=== PATIENT | male | born 1955 | race Caucasian/White ===

== ENCOUNTER 2017-01-24 11:01 | Outpatient (CLI) | payer MEDICARE ==
--- NOTE | 2017-01-24 13:54 | RAD ---
CHEST TWO VIEWS: HISTORY: Preoperative exam. COMPARISON: 03/15/2016 and 05/17/2016 FINDINGS: Stable left-sided single-lead defibrillator. Sternotomy wires are noted. The cardiac silhouette is within normal limits. Pulmonary vessels are within normal limits. Costophrenic angles are clear. C hronic changes in the lung parenchyma. Hyperinflation without consolidation or mass. No pneumothora x or osseous abnormalities. IMPRESSION: No acute cardiopulmonary process. POS: [facility]
[2017-01-24 14:47] LABS: Bilirubin Negative (Negative); Blood, Urine Trace (Negative); Glucose, Urine (Dipstick) 250 mg/dL (Negative); Ketone, Urine Negative (Negative); Nitrite Negative (Negative); Protein, Urine (Dipstick) 100 mg/dL (Neg-Trace); Urobilinogen 0.2 mg/dL (0.2-1.0)
[2017-01-24 14:51] LABS: Bacteria/HPF None Seen HPF (None Seen); Hyaline Casts/LPF 0-3 HYALINE CAST LPF (0-3 Hyaline); RBC/HPF 0-3 HPF (0-3); Squamous Epithelial None Seen HPF (0-3); WBC/HPF 0-3 HPF (0-3)
[2017-01-24 14:53] LABS: #Basophils 0.1 thou/uL (0.0-0.2); #Eosinphils 0.5 thou/uL (0.0-0.7); #Monocytes 0.6 thou/uL (0.11-0.59); #Neutrophils 6.5 thou/uL (1.40-6.50); %Basophils 0.9 % (0.0-1.0); %Eosinophils 4.8 % (0.0-10.0); %Lymphocytes 28.2 % (21.0-51.0); %Monocytes 5.8 % (0.0-10.0); Mean Platelet Volume 8.9 fL (7.4-10.4); Red Blood Cell (RBC) Count 4.65 mill/uL (4.70-6.10); White Blood Cell (WBC) Count 10.8 thou/uL (4.8-10.8)
[2017-01-24 14:58] LABS: Prothrombin Time 13.1 SEC (12.0-14.7)
[2017-01-24 14:59] LABS: PTT 36.1 SEC (22.9-36.1)
[2017-01-24 15:12] LABS: Anion Gap 11 mmol/L (10-20); BUN (Urea Nitrogen) 51 mg/dL (8.4-25.7); Calc. Creatinine Clearance 0 mL/min (70-130); Calcium 10.4 mg/dL (7.8-10.44); Carbon Dioxide 29 mmol/L (22-29); Chloride 99 mmol/L (98-107); Estimated GFR-MDRD 39
== END 2017-01-24 11:02 | disposition home or self-care (01) ==
LOC: LABBT 11:01
PROVIDERS: ATTEND Orthopaedic Surgery
DX: Z01.818 Encounter for other preprocedural examination (principal); M17.11 Unilateral primary osteoarthritis, right knee
CPT/HCPCS: 71020; 80048; 81001; 85025; 85610; 85730; 86850; 86900; 86901; 87081; 93005; 93010

== ENCOUNTER 2017-01-24 15:00 | Inpatient (IN) | payer MEDICARE ==
[2017-01-24 11:34] VITALS: BMI 31.4
[2017-01-31] MEDS ORDERED: Tranexamic Acid 1,000 MG/100 ML BAG ONE ×2 (07:21→10:46)
[2017-01-31] MEDS ORDERED: CEFAZOLIN/Water 2 GM/20 ML SYRINGE ONE (07:21)
[2017-01-31] MEDS ORDERED: Ropivacaine 0.2% HCl/PF 20 ML ONE (07:24)
[2017-01-31] MEDS ORDERED: Fentanyl 100 MCG/2 ML VIAL ONE ×4 (07:24→11:47)
[2017-01-31] MEDS ORDERED: Midazolam HCl 2 mg/2 ml Vial ONE ×2 (07:24→07:49)
[2017-01-31] MEDS ORDERED: Ropivacaine HCl/PF 250 ML in Premix Bag 1 BAG NERVE BLCK SCH (07:52)
[2017-01-31] MEDS ORDERED: traMADol HCl 50 MG TAB PO PRN ×4 (07:52→11:36)
[2017-01-31] MEDS ORDERED: Promethazine HCl 25 MG/ML VIAL IM PRN ×4 (07:52→12:34)
[2017-01-31] MEDS ORDERED: Zolpidem Tartrate 5 MG TAB PO PRN ×3 (07:52→12:34)
[2017-01-31] MEDS ORDERED: HYDROcodone/Acetaminophen 10/325 mg Tablet PO PRN ×4 (07:52→11:35)
[2017-01-31] MEDS ORDERED: Vancomycin HCl 1.5 GM in Sodium Chloride 0.9% 250 ML 300 ML IVPB SCH (08:30)
[2017-01-31] MEDS ORDERED: Fentanyl 100 MCG/2 ML VIAL SLOW IVP PRN ×3 (08:46→11:36)
[2017-01-31] MEDS ORDERED: diphenhydrAMINE 25 MG CAP PO PRN ×2 (08:46→12:34)
[2017-01-31] MEDS ORDERED: Ondansetron HCl/PF 4 MG/2 ML Vial IVP PRN ×2 (08:46→09:33)
[2017-01-31] MEDS ORDERED: Acetaminophen 325 MG TAB PO PRN (08:46)
[2017-01-31] MEDS ORDERED: Pregabalin 50 MG CAP PO SCH (09:00)
[2017-01-31] MEDS ORDERED: LEVEMIR SC SCH (09:00)
[2017-01-31] MEDS ORDERED: Promethazine HCl 25 MG/ML VIAL SLOW IVP PRN (09:33)
[2017-01-31] MEDS ORDERED: INSULIN DETEMIR SC SCH (10:30)
[2017-01-31] MEDS ORDERED: PRE FILLED SC SCH (10:30)
--- NOTE | 2017-01-31 10:54 | OP ---
PREOPERATIVE DIAGNOSIS: Degenerative joint disease, right knee. POSTOPERATIVE DIAGNOSIS: Degenerative joint disease, right knee. SURGEON: Gordo Garrido M.D. CONE OPERATOR: Donovan Alvarenga PA-C. BLOOD LOSS: Minimal. TOURNIQUET TIME: 61 minutes. SPECIMEN: None. DRAINS: None. COMPLICATIONS: None. IMPLANTS USED: Yousif Triathlon 6 femur, 6 tibia, 9 mm CSX3 polyethylene, and A38 patella. PROCEDURE IN DETAIL: After informed consent was obtained in the preoperative holding area. The kishore ent was taken to the operative suite where general anesthesia was induced. Once adequate level of ge neral anesthesia was obtained, the patient was positioned and a well-padded tourniquet was placed sandra und the right proximal thigh. The right lower extremity was then prepped and draped in the usual ruddy rile fashion. Prior to exsanguination, a time out was called and all members of the surgical team ag ya upon site, surgeon, and patient. The extremity was then exsanguinated and the tourniquet was ra ised. A midline longitudinal incision was then made directly over the patella extending two fingerbr eadths above the superior pole of the patella and two fingerbreadths inferior to the inferior patella r pole of the patella. Deeper subcutaneous layers were dissected sharply and local bleeding was cont rolled with Bovie electrocautery. A quad tendon longitudinal split was then made sharply and a media n parapatellar arthrotomy was carried out both sharp and with Bovie electrocautery, carried down to o ne fingerbreadth medial to the tibial tubercle. The knee was then placed into flexion and the patell a was everted nicely, and a copious fat pad ectomy was performed allowing for greater exposure of the tibia. The computer-assisted distal femoral fiducial was then placed and pinned firmly, and the dis sally femoral cutting guide was pinned firmly into place. The oscillating saw was then used to remove the appropriate amount of bone. The 4-in-1 cutting block was then placed on the distal femur and the oscillating saw was used to remove the appropriate amount of bone off of the anterior, posterior, an d chamfer cuts. After completion of bone cuts, the anterior cruciate ligament was resected sharply a nd the posterior cruciate ligament retractor was placed and the tibia was subluxed for better exposur e. Partial meniscectomies were carried out, and the tibial computer-assisted fiducial was pinned, an d the cutting guide was placed. Oscillating saw was then used to remove the bone with Hohmann retrac tors used to take care and protect the collateral ligaments. After the tibial resection was performe d, a laminar acoustic sensor operator was placed in between the freshened bone cuts. The knee placed at 90 degrees a nd further bilateral meniscectomies were carried out, and the curved osteotome and curettage was used to remove any excess bone spurs in the posterior compartment. Exparel was then injected into the po sterior capsule, michelle-articular synovia, pre-patella synovia, and musculature surrounding the capsule . The trial femoral component, tibial baseplate were placed with the appropriate polyethylene trial insert with an appropriate polyethylene spacer and patellar button. The knee was taken through full range of motion with flexion and extension from 0-90 degrees and patellar broach squarely in the tro chlea without any squinting or subluxation noted. The knee was also stable to varus and valgus stres sing at 0, 15, 45, and 90 degrees of flexion. The drawer was negative. All trial components were the n removed and the keel punch was used to provide the appropriate defect in the tibia with a mallet. The freshened bone cuts were copiously irrigated with pulsatile lavage of about 1-1/2 liters to remov e all excess debris. The freshened bone cuts were then dried and with suction and lap sponge. The k nee was placed in flexion and retractors were placed to provide access to all bone cuts. Tobramycin impregnated methyl methacrylate cement was then placed on the freshened bone cuts and implants which were malleted firmly into place. Curettage and Veyo elevators were used to remove any excess bone c ement. The knee was placed into full extension and the patellar button was placed under compression, and the cement was allowed to cure. Once completed, the components were again taken through full ra nge of motion and copious irrigation of the knee was carried out with another liter of normal saline. All components were inspected fully with full range of motion and varus and valgus stressing. There was no laxity noted and full extension was observed clinically. Primary closure was accomplished wi th #2 interrupted Vicryl stitch of the arthrotomy defect. This was oversewn with a #2 running Quill barbed stitch. The gravitational platelet system was then injected into the arthrotomy prior to clos ure. The subcutaneous layer was then closed with a running 0 barbed Monocryl stitch and skin closure accomplished with a running subcuticular 3-0 Monocryl barbed Quill stitch and augmented with cement on the skin. Tourniquet was lowered. Good spontaneous return of distal pulses was noted clinically and a sterile dressing was applied to the incision. The procedure was terminated without any complic ations. The patient was awakened in the operative suite and the tourniquet was removed, and the kishore ent was taken to the recovery room in stable condition.
[2017-01-31] MEDS ORDERED: Ropivacaine 0.5% HCl/PF (150 MG/30 ML VIAL) ONE (11:02)
[2017-01-31] MEDS ORDERED: Acetaminophen 1,000 MG in Premix Bag 1 BAG IVPB PRN (11:34)
[2017-01-31] MEDS ORDERED: Lidocaine 1% PF 5 ML VIAL ONE (11:50)
[2017-01-31] MEDS ORDERED: Propofol 200 MG/20 ML VIAL ONE (11:50)
[2017-01-31] MEDS ORDERED: PHENYLEPHRINE-NS 100 MCG/ML 10 ML SYRINGE ONE (11:50)
[2017-01-31] MEDS ORDERED: Ondansetron HCl/PF 4 MG/2 ML Vial ONE (11:50)
[2017-01-31] MEDS ORDERED: Morphine 4 MG/ML VIAL ONE (12:10)
[2017-01-31] MEDS ORDERED: Morphine 4 MG/ML VIAL SLOW IVP SCH (12:15)
[2017-01-31] MEDS ORDERED: Morphine CADD 1 MG/ML CADD IV PRN (12:34)
[2017-01-31] MEDS ORDERED: diphenhydrAMINE 50 MG/ML VIAL IM/IV PRN (12:34)
[2017-01-31] MEDS ORDERED: Morphine CADD 100 ML ONE (12:34)
[2017-01-31] MEDS ORDERED: Naloxone HCl 0.4 mg/ml Vial IV PRN (12:34)
--- NOTE | 2017-01-31 13:01 | RAD ---
RADIOGRAPH RIGHT KNEE TWO VIEWS: Date: 01-31-17 History: 61-year-old male with right knee pain, status post right knee surgery. Comparison: None. FINDINGS: Metallic prostheses cover the articular surfaces of the distal femur and tibial plateau. Resurfacing changes of posterior aspect of the patella. Extensive subcutaneous emphysema anteriorly, and within t he joint space. Bubbly mixed osteolytic and mildly sclerotic, partially exophytic lesion protruding f rom the posterior aspect of the distal femoral metaphysis, incompletely imaged. IMPRESSION: 1. Immediately status post total right knee replacement arthroplasty. 2. Posterior distal femoral lesion, incompletely imaged. POS: [facility]
[2017-01-31] MEDS: Furosemide 20 MG TAB PO SCH (14:54)
[2017-01-31] MEDS: Aspirin 325 MG TAB PO SCH ×2 (14:54→21:30)
[2017-01-31] MEDS: Metoprolol Tartrate 25 MG TAB PO SCH ×2 (14:56→21:31)
[2017-01-31] MEDS: Sodium Chloride 0.9% 1,000 ML IV SCH ×2 (14:56→20:00)
[2017-01-31] MEDS: Varenicline Tartrate 0.5 MG TAB PO SCH ×2 (14:57→21:31)
[2017-01-31] MEDS: Ketorolac Tromethamine 30 MG/ML VIAL IVP SCH ×2 (15:02→21:32)
[2017-01-31] MEDS: CEFAZOLIN/Water 2 GM/20 ML SYRINGE SLOW IVP SCH (15:03)
--- NOTE | 2017-01-31 15:37 | PDOC.PN ---
- Subjective Encounter Start Date: 01/31/17 Encounter Start Time: 14:00 Patient seen and examined in PACU. No new complaints. Some discomfort at the surgical site - Objective Vital Signs & Weight: Vital Signs (12 hours) Temp Pulse Resp BP Pulse Ox 01/31/17 14:00 97.4 F L 58 L 18 126/71 97 Weight Weight 238 lb Result Diagrams: 02/01/17 04:27 Additional Labs: Accuchecks 01/31/17 01/31/17 15:14 09:05 POC Glucose 165 H 216 H EKG Reviewed by me: Yes (SR) Phys Exam - Physical Examination Constitutional: NAD Respiratory: no wheezing, no rhonchi Cardiovascular: RRR, no rub Gastrointestinal: soft, non-tender, positive bowel sounds Musculoskeletal: no edema Neurological: moves all 4 limbs Dx/Plan - Plan DVT proph w/SCDs IMPRESSION: 1. HTN 2. DM2 3. CAD s/p stent/CABG 4. s/p AICD for arrhythmias 5. CKD 3 PLAN: * Change Levemir to BID * Add Moderate sliding scale * Cont Metoprolol with Lisinopril * Diabetic education per protocol * DVT prop per protocol * Full code * on ASA Review of Systems - Review of Systems Respiratory: negative: Cough, Dry, Shortness of Breath, Hemoptysis, SOB with Excertion, Pleuritic Pain, Sputum, Wheezing Cardiovascular: negative: chest pain, palpitations, orthopnea, paroxysmal nocturnal dyspnea, edema, light headedness - Medications/Allergies Allergies/Adverse Reactions: Allergies Allergy/AdvReac Type Severity Reaction Status Date / Time orange flavor Allergy Verified 01/24/17 11:34 orange juice [[place] Juice] Allergy Verified 01/24/17 11:34 duloxetine HCl AdvReac Severe Verified 01/24/17 11:34 [From Cymbalta] Medications: Current Medications Acetaminophen (Tylenol) 650 mg PO Q4H PRN PRN Reason: IVAN/ T > 101F; Mild Pain (1-3) Aspirin (Aspirin) 325 mg PO BID [facility] Last Admin: 01/31/17 14:54 Dose: Not Given Atorvastatin Calcium (Lipitor) 10 mg PO HS [facility] Cefazolin Sodium (Ancef) 2 gm SLOW IVP 0800,1600,2359 [facility] Stop: 02/01/17 00:00 Last Admin: 01/31/17 15:03 Dose: 2 gm Diphenhydramine HCl (Benadryl) 25 mg PO Q6H PRN PRN Reason: Itching Diphenhydramine HCl (Benadryl) 25 mg IM/IV Q3H PRN PRN Reason: Itching Diphenhydramine HCl (Benadryl) 25 mg PO Q3H PRN PRN Reason: Itching Ferrous Gluconate (Fergon) 324 mg PO BID[facility] Furosemide (Lasix) 20 mg PO QAM [facility] Last Admin: 01/31/17 14:54 Dose: Not Given Ropivacaine 250 ml/ Device 250 mls @ 10 mls/hr NERVE BLCK INF [facility] Sodium Chloride (Normal Saline 0.9%) 1,000 mls @ 100 mls/hr IV .Q10H [facility] Last Admin: 01/31/17 14:56 Dose: Not Given Insulin Detemir 46 units/ (Miscellaneous Medication) 0.46 mls @ 0 mls/hr SC QAM [facility] Acetaminophen 1,000 mg/ Device 100 mls @ 400 mls/hr IVPB Q6H PRN PRN Reason: Pain Stop: 02/01/17 11:35 Iron/Minerals/Multivitamins (Theragran M) 1 tab PO DAILY [facility] Ketorolac Tromethamine (Toradol) 30 mg IVP Q8HR [facility] Stop: 02/02/17 14:01 Last Admin: 01/31/17 15:02 Dose: 30 mg Lisinopril (Zestril) 5 mg PO HS [facility] Metoprolol Tartrate (Lopressor) 25 mg PO BID [facility] Last Admin: 01/31/17 14:56 Dose: Not Given Morphine Sulfate (Morphine Cadd) 0 mg IV INF PRN PRN Reason: Pain Naloxone HCl (Narcan) 0.2 mg IV Q5MIN PRN PRN Reason: RR <8 or pt obtun/unarousable Ondansetron HCl (Zofran) 4 mg IVP Q6H PRN PRN Reason: Nausea/Vomiting Ondansetron HCl (Zofran) 4 mg IVP Q6H PRN PRN Reason: Nausea/Vomiting Promethazine HCl (Phenergan) 12.5 mg IM Q4H PRN PRN Reason: Nausea/Vomiting Promethazine HCl (Phenergan) 12.5 mg IM Q4H PRN PRN Reason: Nausea/Vomiting Senna/Docusate Sodium (Senokot S) 2 tab PO BID [facility] Sodium Chloride (Flush - Normal Saline) 10 ml IVF PRN PRN PRN Reason: Saline Flush Varenicline (Chantix) 1 mg PO BID [facility] Last Admin: 01/31/17 14:57 Dose: Not Given Zolpidem Tartrate (Ambien) 5 mg PO HSPRN PRN PRN Reason: Insomnia
[2017-01-31] MEDS ORDERED: Insulin Regular 300 UNITS/3 ML VIAL SC PRN (15:38)
[2017-01-31] MEDS ORDERED: Dextrose 5% in Water 1,000 ML IV PRN (15:38)
[2017-01-31] MEDS ORDERED: Dextrose 50% Abboject 50 ML SYRINGE SLOW IVP PRN (15:38)
[2017-01-31] MEDS: Ondansetron HCl/PF 4 MG/2 ML Vial IVP PRN (17:16)
[2017-01-31] MEDS ORDERED: Lisinopril 5 MG TAB PO SCH (21:00)
[2017-01-31] MEDS ORDERED: Insulin Detemir 100 UNITS/ML 15 UNITS in Admixture Fee 1 EACH SC SCH (21:00)
[2017-01-31] MEDS: Atorvastatin Calcium 10 MG TAB PO SCH (21:30)
[2017-02-01] MEDS: CEFAZOLIN/Water 2 GM/20 ML SYRINGE SLOW IVP SCH (00:18)
[2017-02-01] MEDS: Sodium Chloride 0.9% 1,000 ML IV SCH ×2 (04:10→09:37)
[2017-02-01 05:16] LABS: Hematocrit 39.9 % (42.0-52.0); Red Blood Cell (RBC) Count 4.19 mill/uL (4.70-6.10); White Blood Cell (WBC) Count 9.3 thou/uL (4.8-10.8)
[2017-02-01] MEDS: Ketorolac Tromethamine 30 MG/ML VIAL IVP SCH ×3 (05:52→21:21)
[2017-02-01] MEDS: Ondansetron HCl/PF 4 MG/2 ML Vial IVP PRN (06:19)
[2017-02-01] MEDS ORDERED: Promethazine HCl 25 MG/ML VIAL IM/IV PRN (07:23)
[2017-02-01 08:47] LABS: Anion Gap 15 mmol/L (10-20); BUN (Urea Nitrogen) 43 mg/dL (8.4-25.7); Calc. Creatinine Clearance 72 mL/min (70-130); Calcium 8.9 mg/dL (7.8-10.44); Carbon Dioxide 20 mmol/L (22-29); Chloride 107 mmol/L (98-107); Estimated GFR-MDRD 42; Magnesium 1.7 mg/dL (1.6-2.6); Phosphorus 3.2 mg/dL (2.3-4.7)
[2017-02-01] MEDS: Multivitamin W/ Minerals 1 TAB PO SCH (08:48)
[2017-02-01] MEDS: Aspirin 325 MG TAB PO SCH ×2 (08:49→21:20)
[2017-02-01] MEDS: Varenicline Tartrate 0.5 MG TAB PO SCH ×2 (08:49→21:21)
[2017-02-01] MEDS: Senokot S 8.6-50 MG TAB PO SCH ×2 (08:49→21:20)
[2017-02-01] MEDS: Furosemide 20 MG TAB PO SCH (08:49)
[2017-02-01] MEDS: Metoprolol Tartrate 25 MG TAB PO SCH ×2 (08:54→21:20)
[2017-02-01] MEDS ORDERED: INSULIN DETEMIR SC SCH (09:00)
[2017-02-01] MEDS ORDERED: PRE FILLED SC SCH (09:00)
[2017-02-01] MEDS ORDERED: FLU VACC QS2017-18 36 mo. & older 0.5 ML SYRINGE IM ONE (09:00)
[2017-02-01] MEDS: Insulin Detemir 100 UNITS/ML 20 UNITS in Pre-Filled Syringe 1 EACH SC SCH ×2 (09:39→21:27)
[2017-02-01] MEDS: Ferrous Gluconate 324 MG TAB PO SCH ×2 (09:41→18:38)
[2017-02-01] MEDS ORDERED: Fentanyl 5000 MCG/250 ML CADD IV PRN (12:44)
[2017-02-01] MEDS ORDERED: FENTANYL EPIDURAL PRN (13:37)
[2017-02-01] MEDS ORDERED: ADMIXTURE FEE EPIDURAL PRN (13:37)
[2017-02-01] MEDS ORDERED: SODIUM CHLORIDE EPIDURAL PRN (13:37)
[2017-02-01] MEDS ORDERED: FENTANYL IV PRN ×2 (13:45→14:03)
[2017-02-01] MEDS ORDERED: ADMIXTURE FEE IV PRN ×2 (13:45→14:03)
[2017-02-01] MEDS ORDERED: SODIUM CHLORIDE IV PRN ×2 (13:45→14:03)
[2017-02-01] MEDS ORDERED: Fentanyl 100 MCG/2 ML VIAL SLOW IVP PRN (14:21)
[2017-02-01] MEDS ORDERED: Fentanyl 100 MCG/2 ML VIAL SLOW IVP SCH (14:30)
--- NOTE | 2017-02-01 18:31 | PDOC.PN ---
- Subjective Encounter Start Date: 02/01/17 Encounter Start Time: 14:00 Patient seen and examined. No new complaints. No overnight events. Pain controlled. Some nausea with vomiting earlier. - Objective MAR Reviewed: Yes Vital Signs & Weight: Vital Signs (12 hours) Temp Pulse Resp BP Pulse Ox 02/01/17 15:56 97.9 F 69 16 120/61 92 L 02/01/17 10:55 98 F 72 16 128/72 95 02/01/17 08:00 97.9 F 69 16 02/01/17 07:17 98.5 F 71 16 109/66 95 Weight Admit Weight 238 lb Weight 238 lb I&O: 01/31/17 02/01/17 02/02/17 06:59 06:59 06:59 Intake Total 1824 Output Total 1 Balance 1823 Result Diagrams: 02/01/17 04:27 02/01/17 04:27 Additional Labs: Accuchecks 02/01/17 02/01/17 02/01/17 15:58 10:57 05:49 POC Glucose 279 H 263 H 248 H 01/31/17 20:09 POC Glucose 178 H Phys Exam - Physical Examination Constitutional: NAD Respiratory: no wheezing, no rhonchi Cardiovascular: RRR, no rub Gastrointestinal: soft, non-tender, positive bowel sounds Musculoskeletal: no edema Neurological: moves all 4 limbs Dx/Plan - Plan PT/OT, out of bed/ambulate, DVT proph w/SCDs IMPRESSION: 1. HTN 2. DM2 3. CAD s/p stent/CABG 4. s/p AICD for arrhythmias 5. CKD 3 6. Obesity BMI 31.4 PLAN: * Change Levemir 20 units BID * Change sliding scale to mild * Cont Metoprolol * Hold Lasix and Lisinopril * Pain control per Anesthesia team * Cont to monitor Review of Systems - Review of Systems Respiratory: negative: Cough, Dry, Shortness of Breath, Hemoptysis, SOB with Excertion, Pleuritic Pain, Sputum, Wheezing Cardiovascular: negative: chest pain, palpitations, orthopnea, paroxysmal nocturnal dyspnea, edema, light headedness - Medications/Allergies Allergies/Adverse Reactions: Allergies Allergy/AdvReac Type Severity Reaction Status Date / Time orange flavor Allergy Verified 01/24/17 11:34 orange juice [[place] Juice] Allergy Verified 01/24/17 11:34 duloxetine HCl AdvReac Severe Verified 01/24/17 11:34 [From Cymbalta] Medications: Current Medications Acetaminophen (Tylenol) 650 mg PO Q4H PRN PRN Reason: IVAN/ T > 101F; Mild Pain (1-3) Aspirin (Aspirin) 325 mg PO BID [facility] Last Admin: 02/01/17 08:49 Dose: 325 mg Atorvastatin Calcium (Lipitor) 10 mg PO HS [facility] Last Admin: 01/31/17 21:30 Dose: 10 mg Dextrose/Water (Dextrose 50%) 25 gm SLOW IVP PRN PRN PRN Reason: Hypoglycemia Diphenhydramine HCl (Benadryl) 25 mg IM/IV Q3H PRN PRN Reason: Itching Diphenhydramine HCl (Benadryl) 25 mg PO Q3H PRN PRN Reason: Itching Ferrous Gluconate (Fergon) 324 mg PO BID[facility] Last Admin: 02/01/17 09:41 Dose: 324 mg Glucagon (Glucagon) 1 mg IM PRN PRN PRN Reason: Hypoglycemia Hydralazine HCl (Apresoline) 10 mg SLOW IVP Q4H PRN PRN Reason: SBP Greater Than 180 Ropivacaine 250 ml/ Device 250 mls @ 10 mls/hr NERVE BLCK INF [facility] Last Admin: 02/01/17 11:48 Dose: 250 mls Sodium Chloride (Normal Saline 0.9%) 1,000 mls @ 100 mls/hr IV .Q10H [facility] Last Admin: 02/01/17 09:37 Dose: 1,000 mls Dextrose/Water (D5w) 1,000 mls @ 0 mls/hr IV .Q0M PRN; As Directed PRN Reason: Hypoglycemia Insulin Detemir 20 units/ (Miscellaneous Medication) 0.2 mls @ 0 mls/hr SC BID [facility] Last Admin: 02/01/17 09:39 Dose: 0.2 mls Fentanyl 5,000 mcg/Miscellaneous Medication 1 each/ Sodium Chloride 250 mls @ 0 mls/hr IV INF PRN; As Directed PRN Reason: Pain Last Admin: 02/01/17 14:39 Dose: 250 mls Insulin Human Regular (Humulin R) 0 units SC .BEDTIME SLIDING SC PRN PRN Reason: Bedtime Correctional Scale Insulin Human Regular (Humulin R) 0 units SC .MILD SLIDING SCALE PRN PRN Reason: Mild Correctional Scale Iron/Minerals/Multivitamins (Theragran M) 1 tab PO DAILY [facility] Last Admin: 02/01/17 08:48 Dose: 1 tab Ketorolac Tromethamine (Toradol) 30 mg IVP Q8HR [facility] Stop: 02/02/17 14:01 Last Admin: 02/01/17 13:47 Dose: 30 mg Metoprolol Tartrate (Lopressor) 25 mg PO BID [facility] Last Admin: 02/01/17 08:54 Dose: 25 mg Naloxone HCl (Narcan) 0.2 mg IV Q5MIN PRN PRN Reason: RR <8 or pt obtun/unarousable Ondansetron HCl (Zofran) 4 mg IVP Q6H PRN PRN Reason: Nausea/Vomiting Last Admin: 02/01/17 06:19 Dose: 4 mg Promethazine HCl (Phenergan) 12.5 mg IM Q4H PRN PRN Reason: Nausea/Vomiting Promethazine HCl (Phenergan) 25 mg IM/IV Q6H PRN PRN Reason: Nausea/Vomiting Last Admin: 02/01/17 10:56 Dose: 25 mg Senna/Docusate Sodium (Senokot S) 2 tab PO BID [facility] Last Admin: 02/01/17 08:49 Dose: 2 tab Sodium Chloride (Flush - Normal Saline) 10 ml IVF PRN PRN PRN Reason: Saline Flush Varenicline (Chantix) 1 mg PO BID [facility] Last Admin: 02/01/17 08:49 Dose: 1 mg Zolpidem Tartrate (Ambien) 5 mg PO HSPRN PRN PRN Reason: Insomnia
[2017-02-01] MEDS: Insulin Regular 300 UNITS/3 ML VIAL SC PRN ×2 (18:40→21:28)
[2017-02-01] MEDS: Atorvastatin Calcium 10 MG TAB PO SCH (21:20)
[2017-02-02] MEDS: Sodium Chloride 0.9% 1,000 ML IV SCH ×2 (01:42→15:06)
[2017-02-02 05:33] LABS: Hematocrit 34.2 % (42.0-52.0); Mean Platelet Volume 8.9 fL (7.4-10.4); White Blood Cell (WBC) Count 9.6 thou/uL (4.8-10.8)
[2017-02-02] MEDS: Ketorolac Tromethamine 30 MG/ML VIAL IVP SCH ×2 (06:07→14:57)
[2017-02-02 06:25] LABS: Anion Gap 8 mmol/L (10-20); BUN (Urea Nitrogen) 37 mg/dL (8.4-25.7); BUN/Creatinine Ratio 28.24; Calc. Creatinine Clearance 93 mL/min (70-130); Calcium 8.8 mg/dL (7.8-10.44); Carbon Dioxide 26 mmol/L (22-29); Chloride 107 mmol/L (98-107); Estimated GFR-MDRD 56; Magnesium 1.8 mg/dL (1.6-2.6); Phosphorus 2.5 mg/dL (2.3-4.7)
[2017-02-02] MEDS: Metoprolol Tartrate 25 MG TAB PO SCH ×2 (09:41→20:35)
[2017-02-02] MEDS: Varenicline Tartrate 0.5 MG TAB PO SCH ×2 (09:41→20:36)
[2017-02-02] MEDS: Senokot S 8.6-50 MG TAB PO SCH ×2 (09:42→20:32)
[2017-02-02] MEDS: Ferrous Gluconate 324 MG TAB PO SCH ×2 (09:43→19:03)
[2017-02-02] MEDS: Multivitamin W/ Minerals 1 TAB PO SCH (09:43)
[2017-02-02] MEDS: Aspirin 325 MG TAB PO SCH ×2 (09:43→20:32)
[2017-02-02] MEDS: Insulin Detemir 100 UNITS/ML 20 UNITS in Pre-Filled Syringe 1 EACH SC SCH ×2 (09:48→20:36)
[2017-02-02] MEDS ORDERED: HYDROcodone/Acetaminophen 10/325 mg Tablet PO PRN (10:36)
[2017-02-02] MEDS: HYDROcodone/Acetaminophen 10/325 mg Tablet PO PRN ×2 (14:57→20:35)
--- NOTE | 2017-02-02 19:25 | PDOC.PN ---
- Subjective Encounter Start Date: 02/02/17 Encounter Start Time: 09:30 Patient seen and examined. No new complaints. No overnight events - Objective MAR Reviewed: Yes Vital Signs & Weight: Vital Signs (12 hours) Temp Pulse Resp BP Pulse Ox 02/02/17 16:29 98.4 F 66 18 166/92 H 95 02/02/17 11:53 97.6 F 68 14 163/84 H 97 02/02/17 08:06 98.2 F 64 12 135/78 93 L 02/02/17 08:00 97.6 F 68 14 93 L Weight Admit Weight 238 lb Weight 238 lb I&O: 02/01/17 02/02/17 02/03/17 06:59 06:59 06:59 Intake Total 1824 1982 Output Total 1 1700 Balance 1823 282 Result Diagrams: 02/03/17 04:44 02/02/17 04:55 Additional Labs: Accuchecks 02/02/17 02/02/17 02/02/17 16:08 11:26 05:39 POC Glucose 109 107 116 H 02/01/17 21:13 POC Glucose 277 H Phys Exam - Physical Examination Constitutional: NAD Respiratory: no wheezing, no rhonchi Cardiovascular: RRR, no rub Gastrointestinal: soft, non-tender, positive bowel sounds Musculoskeletal: no edema Neurological: moves all 4 limbs Dx/Plan - Plan DVT proph w/SCDs IMPRESSION: 1. HTN 2. DM2 3. CAD s/p stent/CABG 4. s/p AICD for arrhythmias 5. CKD 3 6. Obesity BMI 31.4 PLAN: * Cont current dose of Levemir with mild sliding scale * Cont Metoprolol at current dose * Resume Lasix and Lisinopril in AM * Cont to monitor Review of Systems - Medications/Allergies Allergies/Adverse Reactions: Allergies Allergy/AdvReac Type Severity Reaction Status Date / Time orange flavor Allergy Verified 01/24/17 11:34 orange juice [[place] Juice] Allergy Verified 01/24/17 11:34 duloxetine HCl AdvReac Severe Verified 01/24/17 11:34 [From Cymbalta] Medications: Current Medications Acetaminophen (Tylenol) 650 mg PO Q4H PRN PRN Reason: IVAN/ T > 101F; Mild Pain (1-3) Hydrocodone Bitart/Acetaminophen (Flushing 10/325) 1 tab PO Q4H PRN PRN Reason: Moderate Pain (4-6) Hydrocodone Bitart/Acetaminophen (Flushing 10/325) 2 tab PO Q4H PRN PRN Reason: Severe Pain (7-10) Last Admin: 02/02/17 14:57 Dose: 2 tab Aspirin (Aspirin) 325 mg PO BID [facility] Last Admin: 02/02/17 09:43 Dose: 325 mg Atorvastatin Calcium (Lipitor) 10 mg PO HS [facility] Last Admin: 02/01/17 21:20 Dose: 10 mg Dextrose/Water (Dextrose 50%) 25 gm SLOW IVP PRN PRN PRN Reason: Hypoglycemia Diphenhydramine HCl (Benadryl) 25 mg IM/IV Q3H PRN PRN Reason: Itching Diphenhydramine HCl (Benadryl) 25 mg PO Q3H PRN PRN Reason: Itching Ferrous Gluconate (Fergon) 324 mg PO BID[facility] Last Admin: 02/02/17 19:03 Dose: 324 mg Furosemide (Lasix) 20 mg PO DAILY [facility] Glucagon (Glucagon) 1 mg IM PRN PRN PRN Reason: Hypoglycemia Hydralazine HCl (Apresoline) 10 mg SLOW IVP Q4H PRN PRN Reason: SBP Greater Than 180 Ropivacaine 250 ml/ Device 250 mls @ 10 mls/hr NERVE BLCK INF [facility] Last Admin: 02/01/17 11:48 Dose: 250 mls Dextrose/Water (D5w) 1,000 mls @ 0 mls/hr IV .Q0M PRN; As Directed PRN Reason: Hypoglycemia Insulin Detemir 20 units/ (Miscellaneous Medication) 0.2 mls @ 0 mls/hr SC BID [facility] Last Admin: 02/02/17 09:48 Dose: 0.2 mls Insulin Human Regular (Humulin R) 0 units SC .BEDTIME SLIDING SC PRN PRN Reason: Bedtime Correctional Scale Last Admin: 02/01/17 21:28 Dose: 3 unit Insulin Human Regular (Humulin R) 0 units SC .MILD SLIDING SCALE PRN PRN Reason: Mild Correctional Scale Last Admin: 02/01/17 18:40 Dose: 4 unit Iron/Minerals/Multivitamins (Theragran M) 1 tab PO DAILY [facility] Last Admin: 02/02/17 09:43 Dose: 1 tab Lisinopril (Zestril) 5 mg PO HS [facility] Metoprolol Tartrate (Lopressor) 25 mg PO BID [facility] Last Admin: 02/02/17 09:41 Dose: 25 mg Naloxone HCl (Narcan) 0.2 mg IV Q5MIN PRN PRN Reason: RR <8 or pt obtun/unarousable Ondansetron HCl (Zofran) 4 mg IVP Q6H PRN PRN Reason: Nausea/Vomiting Last Admin: 02/01/17 06:19 Dose: 4 mg Promethazine HCl (Phenergan) 12.5 mg IM Q4H PRN PRN Reason: Nausea/Vomiting Promethazine HCl (Phenergan) 25 mg IM/IV Q6H PRN PRN Reason: Nausea/Vomiting Last Admin: 02/01/17 10:56 Dose: 25 mg Senna/Docusate Sodium (Senokot S) 2 tab PO BID [facility] Last Admin: 02/02/17 09:42 Dose: Not Given Sodium Chloride (Flush - Normal Saline) 10 ml IVF PRN PRN PRN Reason: Saline Flush Varenicline (Chantix) 1 mg PO BID [facility] Last Admin: 02/02/17 09:41 Dose: 1 mg Zolpidem Tartrate (Ambien) 5 mg PO HSPRN PRN PRN Reason: Insomnia
[2017-02-02] MEDS: Atorvastatin Calcium 10 MG TAB PO SCH (20:32)
[2017-02-02] MEDS ORDERED: Lisinopril 5 MG TAB PO SCH (21:00)
[2017-02-02] MEDS: hydrALAZINE 20 MG/ML VIAL SLOW IVP PRN (22:21)
[2017-02-03] MEDS: HYDROcodone/Acetaminophen 10/325 mg Tablet PO PRN ×3 (00:41→10:25)
[2017-02-03] MEDS: hydrALAZINE 20 MG/ML VIAL SLOW IVP PRN (02:54)
[2017-02-03 05:47] LABS: Hematocrit 35.8 % (42.0-52.0); Mean Platelet Volume 9.2 fL (7.4-10.4); Red Blood Cell (RBC) Count 3.76 mill/uL (4.70-6.10); White Blood Cell (WBC) Count 10.1 thou/uL (4.8-10.8)
[2017-02-03] MEDS: Insulin Regular 300 UNITS/3 ML VIAL SC PRN ×2 (06:24→12:44)
[2017-02-03] MEDS ORDERED: Furosemide 20 MG TAB PO SCH (09:00)
[2017-02-03] MEDS: Ferrous Gluconate 324 MG TAB PO SCH (09:47)
[2017-02-03] MEDS: Aspirin 325 MG TAB PO SCH (09:47)
[2017-02-03] MEDS: Metoprolol Tartrate 25 MG TAB PO SCH (09:48)
[2017-02-03] MEDS: Senokot S 8.6-50 MG TAB PO SCH (09:48)
[2017-02-03] MEDS: Varenicline Tartrate 0.5 MG TAB PO SCH (09:48)
[2017-02-03] MEDS: Multivitamin W/ Minerals 1 TAB PO SCH (09:48)
[2017-02-03] MEDS: Insulin Detemir 100 UNITS/ML 20 UNITS in Pre-Filled Syringe 1 EACH SC SCH (10:16)
[2017-02-03 12:19] VITALS: BP 164/83; TEMP 98.3
--- NOTE | 2017-02-03 20:56 | PDOC.PN ---
- Subjective Encounter Start Date: 02/03/17 Encounter Start Time: 08:30 - Objective Vital Signs & Weight: Vital Signs (12 hours) Temp Pulse Resp BP Pulse Ox 02/03/17 11:40 98.3 F 62 16 164/83 H 96 Weight Admit Weight 238 lb Weight 238 lb I&O: 02/02/17 02/03/17 02/04/17 06:59 06:59 06:59 Intake Total 1982 981.0 Output Total 1700 Balance 282 981.0 Result Diagrams: 02/03/17 04:44 02/02/17 04:55 Additional Labs: Accuchecks 02/03/17 02/03/17 02/02/17 11:42 04:45 21:20 POC Glucose 202 H 159 H 175 H Dx/Plan - Plan * . Review of Systems - Medications/Allergies Allergies/Adverse Reactions: Allergies Allergy/AdvReac Type Severity Reaction Status Date / Time morphine Allergy Nausea Verified 02/03/17 16:16 orange flavor Allergy Verified 01/24/17 11:34 orange juice [[place] Juice] Allergy Verified 01/24/17 11:34 duloxetine HCl AdvReac Severe Verified 01/24/17 11:34 [From Cymbalta]
--- NOTE | 2017-02-07 13:02 | DIS ---
DATE OF ADMISSION: 01/31/2017 DATE OF DISCHARGE: 02/03/2017 PREOPERATIVE DIAGNOSIS: Left knee osteoarthritis/degenerative joint disease. DISCHARGE DIAGNOSIS: Left knee osteoarthritis/degenerative joint disease. PROCEDURE: The patient underwent a left total knee replacement. HOSPITAL COURSE: Hospital stay was unremarkable. The patient was admitted to [address] he worked with staff, physical therapy, occupational therapy, and progressed quite well. By postoperative day #3, he was ready to discharge. DISCHARGE CONDITION: Stable. DISPOSITION: To skilled nurse facility. FOLLOWUP: Followup would be in 3-4 weeks or sooner if there are problems or concerns. DISCHARGE MEDICATIONS: Given with usage instructions. Donovan Alvarenga PA-C dictating for Gordo Garrido M.D.
== END 2017-02-03 14:03 | DRG 470 ==
LOC: SJJU 01-31 06:17
PROVIDERS: ADMIT Orthopaedic Surgery; ATTEND Orthopaedic Surgery
PROC: 0SRC0J9 Replacement of Right Knee Joint with Synthetic Substitute, Cemented, Open Approach (ICD-10-PCS; principal; 2017-01-31)
DX: M17.11 Unilateral primary osteoarthritis, right knee (principal); N18.3 Chronic kidney disease, stage 3 (moderate); I12.9 Hypertensive chronic kidney disease with stage 1 through stage 4 chronic kidney disease, or unspecified chronic kidney disease; I25.10 Atherosclerotic heart disease of native coronary artery without angina pectoris; E11.9 Type 2 diabetes mellitus without complications; E66.9 Obesity, unspecified; Z68.31 Body mass index [BMI] 31.0-31.9, adult; Z95.1 Presence of aortocoronary bypass graft; Z95.810 Presence of automatic (implantable) cardiac defibrillator; Z88.8 Allergy status to other drugs, medicaments and biological substances; Z91.018 Allergy to other foods
CPT/HCPCS: 36415; 36416; 80069; 83735; 85027; 90471; 90682; C1713; C1776; G0008; G8978-GP-CK; G8979-GP-CJ; J0131; J0360; J1815; J1885; J2001; J2250; J2270; J2274; J2405; J2550; J2704; J2795; J3010; J3370; J7050; Q2036

== ENCOUNTER 2017-03-08 14:28 | Outpatient (CLI) | payer MEDICARE ==
--- NOTE | 2017-03-08 15:31 | ULT ---
EXAM: RIGHT LOWER EXTREMITY VENOUS ULTRASOUND WITH DOPPLER: HISTORY: Right lower extremity swelling. Status post right knee arthroplasty. COMPARISON: None. TECHNIQUE: Butts scale, color flow, and Doppler imaging with spectral waveform analysis of the right lower extrem ity system. FINDINGS: There is compressibility, presence of flow, and augmentation of the common femoral vein, femoral vein , and popliteal vein. There is flow in the greater saphenous vein, profunda vein, and posterior tibi al vein. IMPRESSION: No evidence of thrombus in the right lower extremity deep venous system. The results of the study were discussed with Dr. Garrido 03/08/17 at 3:04 p.m. CODE CR POS: [facility]
== END 2017-03-08 14:29 | disposition home or self-care (01) ==
LOC: ULT 14:28
PROVIDERS: ATTEND Orthopaedic Surgery
DX: M25.461 Effusion, right knee (principal); Z96.651 Presence of right artificial knee joint